=== PATIENT | male | born 1990 | race Caucasian/White ===

== ENCOUNTER 2021-02-27 21:08 | Emergency (ER) | payer OTHER ==
[2021-02-27 21:14] VITALS: BP 166/89
[2021-02-27] MEDS ORDERED: BUFFERED LIDOCAINE 10 ML SYRINGE SUBQ STA (21:21)
[2021-02-27] MEDS ORDERED: BACITRACIN ZINC OINT 1 PACKET TOP STA (21:22)
--- NOTE | 2021-02-27 21:31 | ED Physician Documentation ---
History of Present Illness - Stated complaint Stated Complaint: RT LEG INJ/HATCHET - Chief complaint Chief Complaint: Laceration - Additonal information Additional information: 30-year-old male presents emergency department for evaluation of a right medial thigh injury sustained when he accidentally hit his thigh with a hatchet while making tingling. Tetanus is up-to-date within the last year. Bleeding is controlled with simple pressure. Review of Systems Constitutional: reports: Fever Ears: reports: Reviewed and negative Nose: reports: Reviewed and negative Throat: reports: Reviewed and negative Cardiac: reports: Reviewed and negative Respiratory: reports: Reviewed and negative : reports: Reviewed and negative Skin: reports: Laceration (s) (right medial thigh) PD PAST MEDICAL HISTORY - Allergies Allergies/Adverse Reactions: Allergies Allergy/AdvReac Type Severity Reaction Status Date / Time No Known Drug Allergies Allergy Verified 02/27/21 21:10 PD ED PE EXPANDED - General General: Alert, No acute distress - Extremities Extremities: Right thigh (3 cm superficial laceration right medial thigh with exposed subcutaneous/fatty tissue. Gentle bleed not pulsatile. Distal DP pulse 2+. Femoral pulses 2+.) Results - Vitals Vitals: Vital Signs - 24 hr 02/27/21 21:10 Temperature 36.5 C Heart Rate 100 Respiratory 16 Rate Blood Pressure 166/89 H O2 Saturation 97 Oxygen O2 Source Room air Procedures - Laceration (location) right medial thigh laceration Length in cm: 3.5 Wound type: Linear, Into subcut fat Neurovascular status: Sensory intact Anesthesia: Lidocaine 1% Wound preparation: Chlorhexadine, Irrigated copiously NS Skin layer closure: [place] (7 placed) Other: Patient tolerated well, No complications, Tetanus UTD PD MEDICAL DECISION MAKING - ED course Complexity details: reviewed results, re-evaluated patient ED course: 30-year-old male presents emergency department for evaluation of right medial thigh laceration sustained when using a hatchet to trampoline. He has a 3.5 cm wound that goes into subcutaneous fat only. No findings consistent with an arterial injury. His tetanus is up-to-date. Wound was easily closed after appropriate anesthesia using 7 marylu. Routine wound care and emergent return precautions were discussed. Departure - Departure Disposition: 01 Home, Self Care Clinical Impression: Thigh laceration Qualifiers: Encounter type: initial encounter Laterality: right Qualified Code(s): S71.111A - Laceration without foreign body, right thigh, initial encounter Condition: Stable Record reviewed to determine appropriate education?: Yes Instructions: ED Laceration Scalp Stitch Or Stap Comments: Your marylu should be removed in 7 to 10 days. In 24 hours you may remove the dressing wash gently with warm soap and water, apply any antibiotic ointment and a simple bandage. Your tetanus is up-to-date. Please attempt to keep your wound clean and dry. Do not submerge it in dirty dishwater or bath water. Return to the emergency department if you have any concerns of infection such as redness, fevers milky drainage increased pain.
[2021-02-27] MEDS ORDERED: ONDANSETRON ODT 4 MG TABLET TL STA (21:38)
== END 2021-02-27 21:56 | disposition home or self-care (01) ==
LOC: ED 21:08
DX: S71.111A Laceration without foreign body, right thigh, initial encounter (principal); W27.0XXA Contact with workbench tool, initial encounter
CPT/HCPCS: 12002; 99281; 99282; A9270; Q0162